=== PATIENT | male | born 1990 | race Caucasian/White ===

== ENCOUNTER 2016-12-10 06:09 | Emergency (ER) | payer BC ==
[~2016-12-10] VITALS: Ht 182.9 cm; Wt 95.3 kg
[2016-12-10 06:51] LABS: BASO % 0.3 % (0.2-1.2); EOS # 0.1 10_X3_uL (0.0-0.5); GRAN # 3.1 10_X3_uL (1.8-5.4); GRAN % 50.7 % (34.0-67.9); HEMATOCRIT 50.1 % (40-51); LYMPH # 2.4 10_X3_uL (1.3-3.6); LYMPH % 39.7 % (21.8-53.1); MEAN CORPUSCULAR HEMOGLOBIN 29.9 pg (27.0-33.0); MEAN CORPUSCULAR HGB CONC 35.9 g/dL (32.0-36.0); MEAN CORPUSCULAR VOLUME 83.1 fL (79-92); MEAN PLATELET VOLUME 11.8 fl (7.5-11.5); MONO # 0.4 10_X3_uL (0.3-0.8); MONO % 7.3 % (5.3-12.2); PLATELET COUNT 165 x10_3/uL (163-337); RED BLOOD COUNT 6.03 x10_6/uL (4.6-6.1); RED CELL DISTRIBUTION WIDTH 12.9 % (11.6-14.4)
[2016-12-10 07:03] LABS: ALKALINE PHOSPHATASE 102 U/L (50-136); ALT/SGPT 102 U/L (7.53-40.17); AST/SGOT 67 U/L (6.66-35.34); BILIRUBIN,TOTAL 0.38 mg/dL (0.0-1.0); BLOOD UREA NITROGEN 6 mg/dL (7-18); CARBON DIOXIDE 22 mmol/L (21-32); CREATININE 0.9 mg/dL (0.6-1.3); GLUCOSE,RANDOM 153 mg/dL (70-99); POTASSIUM 4.2 mmol/L (3.5-5.1); SODIUM 140 mmol/L (136-145); TOTAL PROTEIN 7.2 gm/dL (6.4-8.2)
== END 2016-12-10 08:44 | disposition home or self-care (01) ==
LOC: ER 06:09
PROVIDERS: General Practice
DX: J06.9 Acute upper respiratory infection, unspecified (principal); J40 Bronchitis, not specified as acute or chronic; R06.2 Wheezing; M54.6 Pain in thoracic spine; R50.9 Fever, unspecified; Z88.1 Allergy status to other antibiotic agents; Z88.2 Allergy status to sulfonamides
CPT/HCPCS: 36415; 71020; 80053; 85025; 96372; 99283-25

== ENCOUNTER 2016-12-12 09:46 | Emergency (ER) | payer BC ==
[2016-12-12 10:31] LABS: BASO % 0.2 % (0.2-1.2); EOS % 0.2 % (0.8-7.0); HEMATOCRIT 42.9 % (40-51); HEMOGLOBIN 15.3 g/dL (13.7-17.5); LYMPH % 31.5 % (21.8-53.1); MEAN CORPUSCULAR HGB CONC 35.7 g/dL (32.0-36.0); MEAN CORPUSCULAR VOLUME 84.1 fL (79-92); MEAN PLATELET VOLUME 11.4 fl (7.5-11.5); MONO # 0.7 10_X3_uL (0.3-0.8); MONO % 5.1 % (5.3-12.2); PLATELET COUNT 193 x10_3/uL (163-337); RED CELL DISTRIBUTION WIDTH 12.6 % (11.6-14.4); WHITE BLOOD COUNT 12.7 x10_3/uL (4.2-9.1)
[2016-12-12 10:43] LABS: ALBUMIN 3.6 gm/dL (3.4-5.0); ALKALINE PHOSPHATASE 81 U/L (50-136); ALT/SGPT 72 U/L (7.53-40.17); AST/SGOT 31 U/L (6.66-35.34); BILIRUBIN,TOTAL 0.35 mg/dL (0.0-1.0); BLOOD UREA NITROGEN 13 mg/dL (7-18); CALCIUM 8.6 mg/dL (8.7-10.7); CARBON DIOXIDE 23 mmol/L (21-32); CREATININE 0.8 mg/dL (0.6-1.3); GLUCOSE,RANDOM 254 mg/dL (70-99); POTASSIUM 3.7 mmol/L (3.5-5.1); SODIUM 135 mmol/L (136-145); TOTAL PROTEIN 6.3 gm/dL (6.4-8.2)
== END 2016-12-12 11:58 | disposition home or self-care (01) ==
LOC: ER 09:46
PROVIDERS: General Practice
DX: R42 Dizziness and giddiness (principal); J32.9 Chronic sinusitis, unspecified; R07.89 Other chest pain; R73.9 Hyperglycemia, unspecified; Z88.2 Allergy status to sulfonamides; Z88.1 Allergy status to other antibiotic agents
CPT/HCPCS: 36415; 70486; 71020; 80053; 83605; 85025; 87040; 93005; 99284-25